=== PATIENT | female | born 2000 | race African-American/Black ===

== ENCOUNTER 2023-06-09 16:55 | Emergency (ER) | payer OTHER ==
[~2023-06-09] VITALS: Ht 162.6 cm; Wt 59.2 kg
[2023-06-09] MEDS ORDERED: ONDANSETRON 4MG 2ML VIAL IV ONE ×2 (17:25→18:10)
[2023-06-09 17:53] LABS: BASO % 0.4 % (0.0-1.0); EOS % 0.1 % (0.0-3.0); HEMATOCRIT 41.8 % (36.0-47.0); HEMOGLOBIN 13.9 g/dl (12.0-15.5); LYMPH # 1.2 10^3/uL (1.5-5.0); LYMPH % 15.6 % (24.0-44.0); MEAN CORPUSCULAR HEMOGLOBIN 29.8 pg (27.0-33.0); MEAN CORPUSCULAR HGB CONC 33.3 g/dl (32.0-36.5); MEAN CORPUSCULAR VOLUME 89.5 fl (80.0-96.0); MONO # 0.4 10^3/uL (0.0-0.8); MONO % 4.8 % (2.0-8.0); NEUTROPHILS # 6.2 10^3/uL (1.5-8.5); NEUTROPHILS % 78.8 % (36.0-66.0); PLATELET COUNT, AUTOMATED 269 10^3/uL (150-450); RED BLOOD COUNT 4.67 10^6/uL (4.00-5.40); WHITE BLOOD COUNT 7.8 10^3/uL (4.0-10.0)
[2023-06-09] MEDS ORDERED: NS 1,000 ML IV ONE (18:10)
[2023-06-09 18:11] LABS: LIPASE 23 U/L (12-53)
[2023-06-09 18:13] LABS: ALKALINE PHOSPHATASE 92 U/L (46-116); ALT/SGPT 15 U/L (7.0-40); AST/SGOT 16 U/L (<34); BILIRUBIN,DIRECT < 0.1 MG/DL (<0.4); BILIRUBIN,TOTAL 0.3 MG/DL (0.3-1.2)
[2023-06-09 18:16] LABS: HCG, SERUM QUALITATIVE NEGATIVE (NEGATIVE)
[2023-06-09] MEDS ORDERED: ISOVUE-370 76% 100ML VIAL As Ordered ONE (18:25)
[2023-06-09] MEDS ORDERED: ONDA4TAB6 PO (19:33)
[2023-06-09 19:40] VITALS: BP 114/55; TEMP 97.8; O2SAT 100
== END 2023-06-09 19:54 | disposition home or self-care (01) ==
LOC: M ED 16:55
DX: K52.9 Noninfective gastroenteritis and colitis, unspecified (principal); F17.200 Nicotine dependence, unspecified, uncomplicated; F12.10 Cannabis abuse, uncomplicated; F10.10 Alcohol abuse, uncomplicated; Z79.83 Long term (current) use of bisphosphonates
CPT/HCPCS: 74177; 80047; 80076; 81001; 83690; 84703; 85025; 87086; 96361; 96374; 96375; 99284; J2405; Q9967